=== PATIENT | male | born 1970 | race Caucasian/White ===

== ENCOUNTER 2023-12-19 16:06 | Outpatient (CLI) | payer BC, SELFPAY ==
[2023-12-19 19:59] LABS: Basophils Absolute Auto 0.1 K/mm3 (0.0-0.1); Eosinophils Absolute Auto 0.3 K/mm3 (0-0.3); Eosinophils Percent Auto 4.4 % (0-4.4); Hematocrit 39.4 % (42.0-52.0); Hemoglobin 12.1 g/dL (14.0-18.0); Immature Granulocyte Absolute 0.01 K/mm3 (0.00-0.031); Immature Granulocyte Percent A 0.2 % (0-0.5); Lymphocytes Absolute Auto 1.42 K/mm3 (0.9-3.2); Lymphocytes Percent Auto 23.1 % (18.3-44.2); Mean Corpuscular HGB Conc 30.7 g/dl (32-36); Mean Corpuscular Hemoglobin 23.5 pg (26-34); Mean Corpuscular Volume 76.5 fl (80-100); Mean Platelet Volume 10.7 fl (7.4-10.4); Monocytes Absolute Auto 0.4 K/mm3 (0.1-0.6); Monocytes Percent Auto 7.2 % (2.6-8.5); Neutrophils Absolute Auto 3.9 K/mm3 (1.3-6.7); Neutrophils Percent Auto 64.1 % (45.5-73.1); Platelet Count Result 212 k/mm3 (150-375); Red Blood Count 5.15 M/mm3 (4.6-6.20); Red Cell Distribution Width 20.6 % (11.5-14.5); White Blood Count 6.1 K/mm3 (4.5-10.0)
[2023-12-19 20:28] LABS: Alanine Aminotransferase 28 U/L (6-50); Albumin Level 4.4 g/dL (3.5-5.1); Alkaline Phosphatase 102 U/L (38-126); Anion Gap 6 mmol/L (4-12); Aspartate Amino Transferase 35 U/L (17-59); Bilirubin,Total 0.4 mg/dL (0.2-1.3); Blood Urea Nitrogen 15 mg/dL (9-20); Calcium 8.6 mg/dL (8.4-10.2); Carbon Dioxide 27 mmol/L (22-30); Chloride 109 mmol/L (98-107); Estimated Glomerular Filt Rate > 60; Glucose 105 mg/dL (65-110); Potassium 3.9 mmol/L (3.4-5.0); Sodium 142 mmol/L (137-145)
== END 2023-12-19 16:07 | disposition home or self-care (01) ==
LOC: ANHGOSHLAB 16:08
PROVIDERS: PCP Family Medicine; Visit Provider Family Medicine
DX: R06.89 Other abnormalities of breathing (principal); I25.10 Atherosclerotic heart disease of native coronary artery without angina pectoris; R06.00 Dyspnea, unspecified
CPT/HCPCS: 36415; 80053; 84443; 85025

== ENCOUNTER 2023-12-19 16:14 | Outpatient (CLI) | payer BC, SELFPAY ==
--- NOTE | ~2023-12-19 | XR_ITS ---
XR chest 2V DATE: 12/19/2023 16:27 INDICATION: Dyspnea TECHNIQUE: 2 views COMPARISON: None FINDINGS: Normal heart size. No hilar or mediastinal enlargement. No pulmonary infiltrate or consolid ation, pleural effusion or pulmonary vascular congestion or pneumothorax. Mild thoracic dextroscoliosis. IMPRESSION: No active cardiopulmonary disease Reviewed, dictated and finalized at location B.
== END 2023-12-19 16:15 ==
PROVIDERS: PCP Family Medicine; Visit Provider Family Medicine
DX: R06.89 Other abnormalities of breathing (principal); I25.10 Atherosclerotic heart disease of native coronary artery without angina pectoris; I11.9 Hypertensive heart disease without heart failure; R06.00 Dyspnea, unspecified
CPT/HCPCS: 71046

== ENCOUNTER 2024-01-25 09:02 | Outpatient (CLI) | payer BC, SELFPAY ==
--- NOTE | 2024-01-25 | EST_ITS ---
Patient Info Name: Jose Alejandro Vazquez Age: 53 years : 1970 Gender: Male Ht: 69 in Wt: 171 lbs BSA: 1.95 m2 HR: 57 bpm BP: 153 / 82 mmHg Heart Rhythm: Sinus Rhythm Exam Date: 01/25/2024 10:54 AM Exam Location: Echo [facility] Patient Status: Outpatient Admit Date: 01/25/2024 Staff Ordering Physician: Ruben De Leon MD Attending Provider: Ruben De Leon MD Exercise Technologist: Bernice Hollis CT Nurse: Stacie Araujo APN Exam Type: CA stress test treadmill Study Info Indications R06.09 - Other forms of dyspnea A treadmill exercise stress test was performed. Summary 1. Normal sinus rhythm - normal ECG. 2. No ischemic ST segment abnormality. 3. Clinically and electrocardiographically negative graded exercise test to 80% of age predicted maximum heart rate. 4. Failure to achieve 85% reduces diagnostic sensitivity. 5. Myocardial perfusion imaging exam to be reported by Radiology. Protocol: Celio Stress ECG Details Stage: REST Duration (min): 1 min : 58 sec Speed (mph): 0.0 Grade (%): 0 HR (bpm): 67 SBP (mmHg): 153 DBP (mmHg): 82 METS: --- Stage: REST Duration (min): 19 min : 51 sec Speed (mph): 0.0 Grade (%): 0 HR (bpm): 80 SBP (mmHg): 153 DBP (mmHg): 82 METS: --- Stage: STAGE 1 Duration (min): 1 min : 0 sec Speed (mph): 1.7 Grade (%): 10 HR (bpm): 87 SBP (mmHg): 153 DBP (mmHg): 82 METS: --- Stage: STAGE 1 Duration (min): 2 min : 0 sec Speed (mph): 1.7 Grade (%): 10 HR (bpm): 96 SBP (mmHg): 153 DBP (mmHg): 82 METS: --- Stage: STAGE 1 Duration (min): 3 min : 0 sec Speed (mph): 1.7 Grade (%): 10 HR (bpm): 99 SBP (mmHg): 170 DBP (mmHg): 84 METS: --- Stage: STAGE 2 Duration (min): 1 min : 0 sec Speed (mph): 2.5 Grade (%): 12 HR (bpm): 101 SBP (mmHg): 170 DBP (mmHg): 84 METS: --- Stage: STAGE 2 Duration (min): 2 min : 0 sec Speed (mph): 2.5 Grade (%): 12 HR (bpm): 105 SBP (mmHg): 174 DBP (mmHg): 87 METS: --- Stage: STAGE 2 Duration (min): 3 min : 0 sec Speed (mph): 2.5 Grade (%): 12 HR (bpm): 109 SBP (mmHg): 174 DBP (mmHg): 87 METS: --- Stage: STAGE 3 Duration (min): 1 min : 0 sec Speed (mph): 3.4 Grade (%): 14 HR (bpm): 120 SBP (mmHg): 197 DBP (mmHg): 88 METS: --- Stage: STAGE 3 Duration (min): 2 min : 0 sec Speed (mph): 3.4 Grade (%): 14 HR (bpm): 127 SBP (mmHg): 197 DBP (mmHg): 88 METS: --- Stage: STAGE 3 Duration (min): 2 min : 57 sec Speed (mph): 3.4 Grade (%): 14 HR (bpm): 133 SBP (mmHg): 198 DBP (mmHg): 91 METS: --- Stage: STAGE 4 Duration (min): 0 min : 1 sec Speed (mph): 4.2 Grade (%): 16 HR (bpm): 133 SBP (mmHg): 198 DBP (mmHg): 91 METS: --- Stage: STAGE 5 Duration (min): 0 min : 1 sec Speed (mph): 5.0 Grade (%): 18 HR (bpm): 133 SBP (mmHg): 198 DBP (mmHg): 91 METS: ---
--- NOTE | ~2024-01-25 | NM_ITS ---
EXAMINATION: NM freddy stress w perfusion DATE: 01/25/2024 11:49 INDICATION: Dyspnea, unspecified. TECHNIQUE: Rest images were obtained following intravenous administration of 9.8 mCi Tc99m tetrofosmi n (Myoview). Data was reconstructed into short axis and horizontal and vertical long axis SPECT image s. The stress portion of the exam was not performed. COMPARISON: CT abdomen and pelvis 07/23/2018 FINDINGS: There are no perfusion defects to suggest infarct. IMPRESSION: 1. No perfusion defects at rest to suggest infarct. 2. The stress portion of the exam was not performed. Reviewed, dictated and finalized at location A.
--- NOTE | 2024-01-28 07:13 | WPDPFTINT ---
PFT Procedure Performed PFT Procedure Performed Plethysmography (Lung Vol) Diffusing Cap (DLCO) Flow Vol Loop Spirometry w/o Bronchodil PFT Interpretation This is a pulmonary function test with spirometry, plethysmography and diffusing capacity. The test was performed and results interpreted in accordance with the 2019 and 2005 ATS/ERS Task Force guidelines respectively using the Global Lung Function Initiative-2012 reference equations. Patient demonstrated good effort and cooperation. Reproducibility criteria were met. The quality of the spirometry maneuver was Grade A. Findings: Spirometry: The contour the inspiratory and expiratory flow tracing are normal. the FVC is 4.64 L, 99% predicted. The FEV1 is 3.56 L, 97% predicted. The FEV1: FVC ratio 77%. Plethysmography: The total lung capacity is 5.79 L, 86% predicted. The FRC is 2.73 L, 79% predicted. The residual volume is 1.15 L, 56% predicted. Diffusing capacity: The diffusing capacity unadjusted for hemoglobin and carboxyhemoglobin is 23.3, 79% predicted. The diffusing capacity adjusted for alveolar volume is 4.12, 92% predicted. Impression: The spirometry is normal without evidence of an obstructive abnormality. The total lung capacity and functional residual capacity are normal with a decreased residual volume. This is a abnormal but nonspecific lung volume pattern. The diffusing capacity is normal. There are no prior studies for comparison
--- NOTE | 2024-01-28 07:16 | WPDSIXMINUTE ---
Six Minute Walk Procedure Procedure Performed Pulmonary Stress Test (6 min walk) Six Minute Walk Six Minute Walk: This is a 6 minute walk test. The test was performed and interpreted in accordance with the 2014 ERS/ATS task force guidelines. Findings: The patient's resting room air oxygen saturation measured by pulse oximetry was 99% and heart rate was 62 bpm. Patient ambulated for 305 meters and oxygen saturation remained 97 to 99%. Heart rate at the end of the study was 99 bpm. The patient did not qualify for supplemental oxygen at rest or with ambulation. There are no prior studies for comparison.
== END 2024-01-25 09:03 | disposition home or self-care (01) ==
PROVIDERS: PCP Family Medicine; Visit Provider Family Medicine
DX: I11.9 Hypertensive heart disease without heart failure (principal); I25.10 Atherosclerotic heart disease of native coronary artery without angina pectoris; R06.89 Other abnormalities of breathing; R06.00 Dyspnea, unspecified
CPT/HCPCS: 78452; 93017; 94375; 94618; 94726; 94729; A9502

== ENCOUNTER 2024-02-01 14:29 | Outpatient (CLI) | payer BC, SELFPAY ==
--- NOTE | ~2024-02-01 | CT_ITS ---
EXAMINATION:CT diagnostic chest wo con DATE: 02/01/2024 14:57 INDICATION: Dyspnea. Abnormal results of pulmonary function tests. TECHNIQUE: Computed tomography (CT) of the chest was performed without intravenous contrast. Automate d exposure control and iterative reconstruction technique were employed. The dose-length product (DLP ) was 201.95 mGy-cm. COMPARISON: CT abdomen and pelvis 07/23/2018 FINDINGS: There is mild atelectasis in right middle lobe. No bronchiectasis or honeycombing. There ar e few nodules in the lungs measuring up to 3 mm, likely benign. No pleural effusion. The heart size i s normal. No pericardial effusion. There are coronary artery calcifications. There are no pathologica lly enlarged lymph nodes. There is a 3 mm stone in right kidney. There is mild thoracic spondylosis. There is mild chronic anterior wedging of multiple mid thoracic vertebral bodies. IMPRESSION: 1. No evidence of chronic interstitial lung disease. Reviewed, dictated and finalized at location A.
== END 2024-02-01 14:30 | disposition home or self-care (01) ==
LOC: ANHIMG 14:33
PROVIDERS: PCP Family Medicine; Visit Provider Family Medicine
DX: R94.2 Abnormal results of pulmonary function studies (principal); R06.00 Dyspnea, unspecified; R06.89 Other abnormalities of breathing
CPT/HCPCS: 71250